=== PATIENT | female | born 1945 | race Caucasian/White ===

== ENCOUNTER 2025-05-22 00:37 | Inpatient (IN) | payer MEDICARE ==
[~2025-05-22] VITALS: Ht 167.6 cm; Wt 88.6 kg
[2025-05-22 01:37] LABS: BASO # 0.0 10^3/uL (0.0-0.2); BASO % 0.2 % (0.0-1.0); EOS # 0.0 10^3/uL (0.0-0.5); EOS % 0.3 % (0.0-3.0); LYMPH # 0.6 10^3/uL (1.5-5.0); LYMPH % 4.7 % (24.0-44.0); MONO # 1.0 10^3/uL (0.0-0.8); MONO % 7.0 % (2.0-8.0); NEUTROPHILS # 11.8 10^3/uL (1.5-8.5); NEUTROPHILS % 87.2 % (36.0-66.0); PLATELET COUNT, AUTOMATED 165 10^3/uL (150-450)
[2025-05-22 01:42] LABS: KETONE, URINE AUTO RFX NEGATIVE (NEGATIVE); NITRITE, URINE AUTO RFX NEGATIVE (NEGATIVE); RBC, URINE AUTO RFX 2 /HPF (0-3); SQUAM EPITHELIAL CELL UR AURFX 1 /HPF (0-6)
[2025-05-22 01:43] LABS: LEUKOCYTE ESTERASE UR AUTO RFX 3+ (NEGATIVE); WBC, URINE AUTO RFX 55 /HPF (0-3)
[2025-05-22] MEDS: ACETAMINOPHEN 325 MG TAB PO ONE (01:50)
[2025-05-22] MEDS: NS (Normal Saline) 0.9% 1,000 ML IV ONE (01:50)
[2025-05-22] MEDS: CEFEPIME HCL 2 GM in DEXTROSE 5% (D5W) ADV/MINI-BAG 50 ML IV ONE (03:42)
[2025-05-22 05:11] LABS: CALCIUM LEVEL 7.4 MG/DL (8.3-10.6); CARBON DIOXIDE LEVEL 17 MMOL/L (20-31); CHLORIDE LEVEL 106 MMOL/L (98-107); CREATININE FOR GFR 0.82 MG/DL (0.55-1.30); GLOMERULAR FILTRATION RATE 73.6 (>39); POTASSIUM SERUM 4.2 MMOL/L (3.5-5.1); SODIUM LEVEL 129 MMOL/L (136-145)
[2025-05-22] MEDS: HumuLIN R (REGULAR) INSULIN (NovoLIN R) **100 U/ML** PER UNIT IV ONE (05:15)
[2025-05-22 05:34] LABS: ALT/SGPT 16 U/L (7.0-40); AST/SGOT 29 U/L (<34)
[2025-05-22] MEDS ORDERED: DEXTROSE 50% 50 ML SYRINGE IV PRN (06:05)
[2025-05-22] MEDS ORDERED: GLUCOSE 4 GM CHEW PO PRN (06:05)
[2025-05-22] MEDS ORDERED: GLUCAGON INJ 1 MG VIAL SC PRN (06:05)
[2025-05-22] MEDS ORDERED: LEVO50TA5 PO (06:34)
[2025-05-22] MEDS ORDERED: LOSA100T46 PO (06:34)
[2025-05-22] MEDS ORDERED: ROSU5TAB49 PO (06:34)
[2025-05-22] MEDS ORDERED: ACET500P3 PO (06:37)
[2025-05-22] MEDS ORDERED: IBUP200C25 PO (06:37)
[2025-05-22] MEDS ORDERED: MAGN500T6 PO (06:43)
[2025-05-22] MEDS ORDERED: VITA100T59 PO (06:43)
[2025-05-22] MEDS ORDERED: PRESCAP PO (06:43)
[2025-05-22] MEDS ORDERED: B-12100010 PO (06:43)
[2025-05-22] MEDS ORDERED: CALC1TAB30 PO (06:43)
[2025-05-22] MEDS ORDERED: HOME MED LIST COMPLETE! XX SCH (06:45)
[2025-05-22] MEDS: NS (Normal Saline) 0.9% 1,000 ML IV SCH (06:45)
[2025-05-22] MEDS: INSULIN LISPRO (NovoLOG) PER UNIT SC SCH ×2 (07:30→20:13)
[2025-05-22] MEDS: LEVOTHYROXINE 50 MCG TABLET (0.05 MG) PO SCH (08:03)
[2025-05-22 08:38] LABS: BASO # 0.1 10^3/uL (0.0-0.2); BASO % 0.3 % (0.0-1.0); EOS # 0.1 10^3/uL (0.0-0.5); EOS % 0.3 % (0.0-3.0); LYMPH # 1.8 10^3/uL (1.5-5.0); LYMPH % 9.9 % (24.0-44.0); MONO # 1.4 10^3/uL (0.0-0.8); MONO % 7.7 % (2.0-8.0); NEUTROPHILS # 14.4 10^3/uL (1.5-8.5); NEUTROPHILS % 81.2 % (36.0-66.0); PLATELET COUNT, AUTOMATED 167 10^3/uL (150-450)
[2025-05-22 08:49] LABS: INR 1.05
[2025-05-22 09:01] LABS: C REACTIVE PROTEIN QUANTITATIV 8.87 MG/DL (<1.0); CALCIUM LEVEL 8.3 MG/DL (8.3-10.6); CARBON DIOXIDE LEVEL 22.0 MMOL/L (20-31); CHLORIDE LEVEL 108.0 MMOL/L (98-107); CREATININE FOR GFR 0.89 MG/DL (0.55-1.30); GLOMERULAR FILTRATION RATE 66.7 (>39); POTASSIUM SERUM 4.4 MMOL/L (3.5-5.1); SODIUM LEVEL 139.0 MMOL/L (136-145)
[2025-05-22 09:47] VITALS: BP 131/73; TEMP 97.5; O2SAT 99
[2025-05-22] MEDS: ENOXAPARIN 40 MG/0.4 ML SYRINGE (J1650 PER 10MG) SC SCH (10:33)
[2025-05-22] MEDS: ROSUVASTATIN 10 MG TAB PO SCH (10:33)
[2025-05-22] MEDS ORDERED: PILL CUTTER 1 EACH XX ONE (10:34)
[2025-05-22] MEDS ORDERED: PILL CUTTER 1 EACH XX PRN (11:10)
[2025-05-22] MEDS: LOSARTAN 50 MG TABLET PO SCH (11:39)
[2025-05-22] MEDS: CYANOCOBALAMIN 500 MCG TAB PO SCH (11:40)
[2025-05-22] MEDS: CALCIUM/VITAMIN D 500 MG TAB PO SCH (11:40)
[2025-05-22] MEDS: MAGNESIUM GLUCONATE 500 MG TAB PO SCH (11:40)
[2025-05-22] MEDS: CEFEPIME HCL 2 GM in DEXTROSE 5% (D5W) ADV/MINI-BAG 50 ML IV SCH (16:27)
[2025-05-22] MEDS: ACETAMINOPHEN 325 MG TAB PO PRN (19:58)
[2025-05-22 20:01] VITALS: BP 132/73; TEMP 98.1; O2SAT 97
[2025-05-23 03:50] VITALS: BP 135/73; TEMP 97.9; O2SAT 97
[2025-05-23 08:26] VITALS: BP 139/70
[2025-05-23] MEDS ORDERED: CEFD1CAP9 PO (08:41)
[2025-05-23 09:55] LABS: BASO # 0.1 10^3/uL (0.0-0.2); BASO % 0.4 % (0.0-1.0); EOS # 0.1 10^3/uL (0.0-0.5); EOS % 0.8 % (0.0-3.0); LYMPH # 0.8 10^3/uL (1.5-5.0); LYMPH % 7.1 % (24.0-44.0); MONO # 0.9 10^3/uL (0.0-0.8); MONO % 8.0 % (2.0-8.0); NEUTROPHILS # 9.6 10^3/uL (1.5-8.5); NEUTROPHILS % 83.3 % (36.0-66.0); PLATELET COUNT, AUTOMATED 151 10^3/uL (150-450)
[2025-05-23 10:19] LABS: CALCIUM LEVEL 8.5 MG/DL (8.3-10.6); CARBON DIOXIDE LEVEL 21.0 MMOL/L (20-31); CHLORIDE LEVEL 109.0 MMOL/L (98-107); CREATININE FOR GFR 1.03 MG/DL (0.55-1.30); GLOMERULAR FILTRATION RATE 56.0 (>39); POTASSIUM SERUM 4.1 MMOL/L (3.5-5.1); SODIUM LEVEL 140.0 MMOL/L (136-145)
== END 2025-05-23 12:24 | disposition home or self-care (01) | DRG 872 ==
LOC: EDBD 00:37 → M ED 00:37 → M ED INP 05:46 → M MSPAV 09:06
PROVIDERS: ADMIT Student in an Organized Health Care Education/Training Program; ATTEND Internal Medicine
DX: A41.51 Sepsis due to Escherichia coli [E. coli] (principal); N39.0 Urinary tract infection, site not specified; I10 Essential (primary) hypertension; E78.5 Hyperlipidemia, unspecified; E03.9 Hypothyroidism, unspecified; I44.7 Left bundle-branch block, unspecified; G62.9 Polyneuropathy, unspecified; R73.9 Hyperglycemia, unspecified; R73.03 Prediabetes; Z89.422 Acquired absence of other left toe(s); M19.90 Unspecified osteoarthritis, unspecified site; Z96.643 Presence of artificial hip joint, bilateral; Z98.41 Cataract extraction status, right eye; Z98.42 Cataract extraction status, left eye; Z88.2 Allergy status to sulfonamides; Z79.899 Other long term (current) drug therapy; Z79.890 Hormone replacement therapy